=== PATIENT | male | born 2000 | race African-American/Black ===

== ENCOUNTER 2025-06-01 13:29 | Emergency (ER) | payer BC ==
[~2025-06-01] VITALS: Ht 180.3 cm; Wt 68.0 kg
[2025-06-01] MEDS ORDERED: DEPAKOTE (13:45)
[2025-06-01] MEDS ORDERED: KEPPRA (13:45)
[2025-06-01 15:27] LABS: *BILIRUBIN,URIN NEGATIVE (NEGATIVE); *BLOOD, URINE NEGATIVE (NEGATIVE); *CLARITY,URINE CLEAR (CLEAR); *COLOR,URINE YELLOW (YELLOW); *KETONES,URINE TRACE (NEGATIVE); *PROTEIN,URINE NEGATIVE (NEGATIVE); *UROBILINOGEN,URINE 0.2 E.U./dl (NORMAL); LEUKOCYTE ESTERASE ,URINE NEGATIVE (NEGATIVE); NITRITE, URINE NEGATIVE (NEGATIVE); UGLUCOSE NEGATIVE (NEGATIVE)
[2025-06-01 15:30] LABS: PLATELET COUNT (AUTO) 178 K/uL (152-348); RED BLOOD CELL COUNT(AUTO) 4.40 MIL/uL (4.06-5.63); RED CELL DISTRIBUTION WIDTH 13.9 % (12.1-16.2); WHITE BLOOD COUNT (AUTO) 6.2 K/uL (3.6-10.2)
[2025-06-01 15:39] LABS: *AMPHETAMINE, URINE NEGATIVE (NEGATIVE); *BARBITURATE, URINE NEGATIVE (NEGATIVE); *BENZODIAZEPINE, URINE NEGATIVE (NEGATIVE); *CANNABINOID, URINE NEGATIVE (NEGATIVE); *COCCAINE, URINE NEGATIVE (NEGATIVE); *OPIATE, URINE NEGATIVE (NEGATIVE); *PHENCYCLIDINE SCREEN,URINE NEGATIVE (NEGATIVE); FENTANYL, URINE NEGATIVE (NEGATIVE)
[2025-06-01 15:41] LABS: CREATININE 1.0 mg/dL (0.6-1.3); SODIUM SERUM 141 mmol/L (136-145); UREA NITROGEN, BLOOD 19 mg/dL (7-18)
[2025-06-01 15:44] LABS: SQUAMOUS EPITHELIAL CELL,UR FEW /HPF (NONE SEEN)
[2025-06-01 15:45] LABS: ETHANOL < 3 MG/DL (0-10)
[2025-06-01 15:55] LABS: ASPARTATE AMINOTRANSFERASE 15 U/L (15-37); TOTAL PROTEIN, SERUM 7.1 g/dL (6.4-8.2); VALPROIC ACID 70 ug/mL (50-100)
[2025-06-01] MEDS ORDERED: OLANZAPINE 5 MG TABLET ONE (17:33)
[2025-06-01] MEDS: OLANZAPINE 5 MG TABLET PO ONE (17:38)
[2025-06-01 19:25] VITALS: BP 126/82
[2025-06-01 19:31] VITALS: BP 126/82; TEMP 98.5; O2SAT 96
== END 2025-06-01 19:32 ==
LOC: ER 13:29
DX: R45.851 Suicidal ideations (principal); F10.10 Alcohol abuse, uncomplicated; G40.909 Epilepsy, unspecified, not intractable, without status epilepticus; F12.90 Cannabis use, unspecified, uncomplicated; F17.210 Nicotine dependence, cigarettes, uncomplicated
CPT/HCPCS: 36415; 80164; 85025; A4606; A4663; G0480